=== PATIENT | male | born 1995 | race Two or more races ===

== ENCOUNTER 2023-06-20 22:46 | Emergency (ER) | payer OTHER ==
[~2023-06-20] VITALS: Ht 167.6 cm; Wt 72.6 kg
== END 2023-06-20 23:53 | disposition home or self-care (01) ==
LOC: ER 22:46
DX: S61.521A Laceration with foreign body of right wrist, initial encounter (principal); W25.XXXA Contact with sharp glass, initial encounter; Y93.89 Activity, other specified; Y92.89 Other specified places as the place of occurrence of the external cause